=== PATIENT | female | born 1980 | race Two or more races ===

== ENCOUNTER 2020-05-21 13:32 | Inpatient (IN) | payer OTHER ==
[~2020-05-21] VITALS: Ht 170.2 cm; Wt 123.4 kg
[2020-05-21] MEDS ORDERED: PRENATABS FA T1 EACH (13:43)
[2020-05-21] MEDS ORDERED: SYNTHROID50 MCG PO (23:33)
== END 2020-05-25 17:13 | disposition home or self-care (01) | DRG 831 ==
LOC: ER 13:32 → LDR 18:03 → SEC-K 18:03 → LDR 19:09
PROVIDERS: ADMIT Obstetrics & Gynecology; ATTEND Obstetrics & Gynecology
PROC: 4A033R1 Measurement of Arterial Saturation, Peripheral, Percutaneous Approach (ICD-10-PCS; 2020-05-21)
PROC: 4A1HXFZ Monitoring of Products of Conception, Cardiac Rhythm, External Approach (ICD-10-PCS; 2020-05-21)
PROC: 3E0F7SF Introduction of Other Gas into Respiratory Tract, Via Natural or Artificial Opening (ICD-10-PCS; 2020-05-21)
PROC: 8E0ZXY6 Isolation (ICD-10-PCS; principal; 2020-05-22)
DX: O98.512 Other viral diseases complicating pregnancy, second trimester (principal); U07.1 COVID-19; J12.89 Other viral pneumonia; O99.512 Diseases of the respiratory system complicating pregnancy, second trimester; Z3A.22 22 weeks gestation of pregnancy; R09.02 Hypoxemia

== ENCOUNTER 2020-09-02 19:13 | Outpatient (CLI) | payer OTHER ==
[~2020-09-02 19:13] MED LIST: PRENATABS FA T1 EACH; SYNTHROID50 MCG PO
== END 2020-09-03 13:15 | disposition home or self-care (01) ==
LOC: OBS/DEL 19:13
PROVIDERS: ATTEND Obstetrics & Gynecology
DX: O36.8131 Decreased fetal movements, third trimester, fetus 1 (principal); O26.843 Uterine size-date discrepancy, third trimester; Z3A.37 37 weeks gestation of pregnancy

== ENCOUNTER 2020-09-20 05:22 | Inpatient (IN) | payer OTHER ==
[~2020-09-20] VITALS: Ht 167.6 cm; Wt 3.2 kg
[2020-09-20] MEDS ORDERED: ECOTRIN81 MG PO (07:10)
[2020-09-20] MEDS ORDERED: CLARITIN10 M1 PO (07:11)
== END 2020-09-24 16:26 | disposition home or self-care (01) | DRG 788 ==
LOC: LDR 05:22 → O/R 09-21 17:37 → OB/GYN 09-21 18:29
PROVIDERS: ADMIT Obstetrics & Gynecology; ATTEND Obstetrics & Gynecology
PROC: 3E0P7VZ Introduction of Hormone into Female Reproductive, Via Natural or Artificial Opening (ICD-10-PCS; 2020-09-20)
PROC: 4A1HXFZ Monitoring of Products of Conception, Cardiac Rhythm, External Approach (ICD-10-PCS; 2020-09-20)
PROC: 10D00Z1 Extraction of Products of Conception, Low, Open Approach (ICD-10-PCS; principal; 2020-09-21 15:58)
DX: O61.0 Failed medical induction of labor (principal); O75.5 Delayed delivery after artificial rupture of membranes; O48.0 Post-term pregnancy; O24.429 Gestational diabetes mellitus in childbirth, unspecified control; O99.284 Endocrine, nutritional and metabolic diseases complicating childbirth; E03.9 Hypothyroidism, unspecified; Z3A.40 40 weeks gestation of pregnancy; Z37.0 Single live birth; Z20.822 Contact with and (suspected) exposure to COVID-19